=== PATIENT | male | born 1945 | race Caucasian/White ===

== ENCOUNTER 2017-04-24 11:03 | Emergency (ER) | payer MEDICARE, BC ==
[2017-04-24 11:18] VITALS: RESP 16; TEMP 98.3; O2SAT 98; BMI 22.9
[2017-04-24] MEDS ORDERED: Famotidine 20mg/50ml 20 MG/50 ML BAG IVPB STA (11:25)
[2017-04-24] MEDS ORDERED: DiphenhydrAMINE 50 mg/ml Inj IVP STA (11:25)
--- NOTE | 2017-04-24 11:34 | ED PDOC ---
Arrival/HPI - General Chief Complaint: Allergic Reaction Time Seen by Provider: 04/24/17 11:19 Historian: Patient - History of Present Illness Narrative History of Present Illness (Text): 04/24/17 11:25 71 year old male presents to the emergency department complaining of diffuse generalized itchiness, redness, and watery eyes after getting an allergy shot at a doctor's office prior to arrival. He states he felt fine before the shot but began having symptoms while driving home. Denies shortness of breath. PMD: Dr. Storm Figueroa Time/Duration: Prior to Arrival Symptom Onset: Sudden Symptom Course: Unchanged Modifying Factors (Text): None Past Medical History - Provider Review Nursing Documentation Reviewed: Yes - Infectious Disease Hx of Infectious Diseases: None - Tetanus Immunization Tetanus Immunization: Unknown - Cardiac Hx Pacemaker: No - Neurological Hx Paralysis: No - Renal Hx Kidney Stones: Yes - Hematological/Oncological Hx Blood Transfusions: No Hx Blood Transfusion Reaction: No - Musculoskeletal/Rheumatological Hx Musculoskeletal Disorders: Yes (HERNIATED DISCS) - Gastrointestinal Hx Gastrointestinal Disorders: (fatty liver) Hx Diverticulitis: Yes Hx Gastroesophageal Reflux: Yes - Genitourinary/Gynecological Hx Prostate Problems: Yes (enlarged, had sx 6 yrs ago) - Psychiatric Hx Emotional Abuse: No Hx Physical Abuse: No Hx Substance Use: No - Anesthesia Hx Anesthesia Reactions: No Hx Malignant Hyperthermia: No - Suicidal Assessment Feels Threatened In Home Enviroment: No Family/Social History - Physician Review Nursing Documentation Reviewed: Yes Family/Social History: Unknown Family HX Smoking Status: Never Smoked Hx Alcohol Use: No Hx Substance Use: No Allergies/Home Meds Allergies/Adverse Reactions: Allergies No Known Allergies Allergy (Verified 05/03/16 10:49) Home Medications: Home Meds Medication Instructions Recorded Confirmed Bimatoprost [Lumigan 2.5 ml] 1 drop OS QAM 05/03/16 05/06/16 Omeprazole 40 mg PO DAILY 05/06/16 05/06/16 Review of Systems - Physician Review All systems were reviewed & negative as marked: Yes - Review of Systems Eyes: Other (Watery eyes) Respiratory: absent: SOB Skin: Pruritis Physical Exam Vital Signs Reviewed: Yes Vital Signs Temp Pulse Resp BP Pulse Ox 04/24/17 11:15 98.3 F 84 16 141/90 98 Temperature: Afebrile Blood Pressure: Normal Pulse: Regular Respiratory Rate: Normal Appearance: Positive for: Well-Appearing, Non-Toxic, Uncomfortable Pain Distress: None Mental Status: Positive for: Alert and Oriented X 3 - Systems Exam Head: Present: Atraumatic, Normocephalic Pupils: Present: PERRL Extroacular Muscles: Present: EOMI Conjunctiva: Present: Other (Watery eyes) Mouth: Present: Moist Mucous Membranes Neck: Present: Normal Range of Motion Respiratory/Chest: Present: Clear to Auscultation, Good Air Exchange. No: Respiratory Distress, Accessory Muscle Use, Wheezes Cardiovascular: Present: Regular Rate and Rhythm, Normal S1, S2. No: Murmurs Abdomen: Present: Normal Bowel Sounds. No: Tenderness, Distention, Peritoneal Signs Back: Present: Normal Inspection Upper Extremity: Present: Normal Inspection. No: Cyanosis, Edema Lower Extremity: Present: Normal Inspection. No: Edema Neurological: Present: GCS=15, CN II-XII Intact, Speech Normal Skin: Present: Warm, Dry Psychiatric: Present: Alert, Oriented x 3, Normal Insight, Normal Concentration Medical Decision Making ED Course and Treatment: Impression: 71 year old male presents to the emergency department with itchiness , redness, and watery eyes after getting an allergy shot at a doctor's office prior to arrival. Differential Diagnosis included but are not limited to: Allergic reaction Plan: -- Benadryl, SoluMedrol, Pecid -- Reassess and disposition Progress Notes: 04/24/17 11:[address] Figueroa who states the patient was given an allergy immunotherapy shot. He states the patient was fine when he left the office and instructed the patient to go to the ER when the patient called back complaining of current symptoms. 04/24/17 13:44 On reevaluation, patient states his rash has resolved. Patient no longer has any complaints. Will discharge home. Patient instructed to follow up with PMD or return if symptoms worsen. - Medication Orders Current Medication Orders: Discontinued Medications Diphenhydramine HCl (Benadryl) 50 mg IVP STAT STA Stop: 04/24/17 11:26 Last Admin: 04/24/17 11:46 Dose: 50 mg Famotidine (Pepcid 20mg/50ml Premix) 20 mg in 50 mls @ 100 mls/hr IVPB STAT STA Stop: 04/24/17 11:54 Last Admin: 04/24/17 11:44 Dose: 100 mls/hr Methylprednisolone (Solu-Medrol) 125 mg IVP STAT STA Stop: 04/24/17 11:26 Last Admin: 04/24/17 11:46 Dose: 125 mg - Niteshibaylin Statement The provider has reviewed the documentation as recorded by the Lizet Fraser Provider Scribe Attestation: All medical record entries made by the Niteshibaylin were at my direction and personally dictated by me. I have reviewed the chart and agree that the record accurately reflects my personal performance of the history, physical exam, medical decision making, and the department course for this patient. I have also personally directed, reviewed, and agree with the discharge instructions and disposition. Disposition/Present on Arrival - Present on Arrival Any Indicators Present on Arrival: No History of DVT/PE: No History of Uncontrolled Diabetes: No Urinary Catheter: No History of Decub. Ulcer: No History Surgical Site Infection Following: None - Disposition Have Diagnosis and Disposition been Completed?: Yes Diagnosis: Allergic reaction Disposition: HOME/ ROUTINE Disposition Time: 13:49 Patient Plan: Discharge Patient Problems: Current Active Problems Problem Status Onset Allergic reaction Acute Condition: IMPROVED Discharge Instructions (ExitCare): Urticaria (ED) Print Language: PALAUAN Additional Instructions: Mr Mohamud, thank you for letting us take care of you today. Your provider was Dr. Chester. You were treated for Allergic Reaction. The emergency medical care you received today was directed at your acute symptoms. If you were prescribed any medication, please fill it and take as directed. It may take several days for your symptoms to resolve. Return to the Emergency Department if your symptoms worsen, do not improve, or if you have any other problems. Please contact your doctor or call one of the physicians/clinics you have been referred to that are listed on the Patient Visit Information form that is included in your discharge packet. Bring any paperwork you were given at discharge with you along with any medications you are taking to your follow up visit. Our treatment cannot replace ongoing medical care by a primary care provider (PCP) outside of the emergency department. Thank you for allowing the [facility] team to be part of your care today. If you had an X-Ray or CT scan: A Radiologist will review the ED reading if any change in treatment is needed we will contact you. If you had a blood, urine, or wound culture: It will take several days for the results, if any change in treatment is needed we will contact you. If you had an STI test: It will take 48 hours for the results. Please call after 1 week if you have not heard back. Prescriptions: DiphenhydrAMINE [Benadryl] 50 mg PO Q6 #30 cap Famotidine [Pepcid] 20 mg PO DAILY #14 tab predniSONE [predniSONE Tab] 40 mg PO DAILY #8 tab Referrals: Storm Cochran JD, MD [Primary Care Provider] - Follow up with primary Forms: Deeplink (Iraqi), Dee[employer]ink (Serbian)
[2017-04-24 14:27] VITALS: BP 132/83; PULSE 82
== END 2017-04-24 14:10 | disposition home or self-care (01) ==
LOC: ED 11:03
DX: L50.0 Allergic urticaria (principal)
CPT/HCPCS: 96374; 96375; 99283; J1200; J2930